=== PATIENT | male | born 1980 | race Caucasian/White ===

== ENCOUNTER 2017-01-14 21:07 | Emergency (ER) | payer BC ==
[~2017-01-14] VITALS: Ht 182.9 cm; Wt 145.1 kg
[2017-01-15] MEDS ORDERED: VALTREX1000 MG PO (02:25)
[2017-01-15] MEDS ORDERED: SULFAMETHOXAZO1 EACH PO (02:26)
== END 2017-01-14 21:58 | disposition short-term general hospital (02) ==
LOC: ER 21:07
PROC: 0HQEXZZ Repair Left Lower Arm Skin, External Approach (ICD-10-PCS; principal; 2017-01-14)
DX: S61.512A Laceration without foreign body of left wrist, initial encounter (principal); Z79.899 Other long term (current) drug therapy; W26.8XXA Contact with other sharp object(s), not elsewhere classified, initial encounter